=== PATIENT | female | born 1985 | race Caucasian/White ===

== ENCOUNTER 2024-09-12 07:20 | Emergency (ER) | payer OTHER ==
[~2024-09-12] VITALS: Ht 157.4 cm; Wt 59.0 kg
[~2024-09-12 07:20] MED LIST: ATARAX25 MG PO; BACTRIM DS 8001 TA1 PO; CIPROFLOXACIN500 MG PO; FIORICET 325 MG1 TAB PO; MOTRIN800 MG PO; NKHM; PERCOCET 325 MG1 TA2 PO; PREDNISONE20 MG PO; PYRIDIUM200 MG PO; Phenergan25 MG PO; TRIMOX500 MG PO
[2024-09-12] MEDS ORDERED: PREDNISONE20 M1 PO (07:59)
== END 2024-09-12 08:14 | disposition home or self-care (01) ==
LOC: ED 07:20
DX: L23.7 Allergic contact dermatitis due to plants, except food (principal); Z88.7 Allergy status to serum and vaccine; Z79.899 Other long term (current) drug therapy